=== PATIENT | male | born 1990 | race Caucasian/White ===

== ENCOUNTER 2022-02-20 15:36 | Emergency (ER) | payer OTHER, SELFPAY ==
[2022-02-20 16:22] VITALS: BP 148/87; PULSE 87; RESP 18; TEMP 37.2; O2SAT 98; BMI 31.1
[2022-02-20 20:48] VITALS: BP 143/82; PULSE 75; O2SAT 100
[2022-02-20 21:00] VITALS: BP 145/87; PULSE 74; O2SAT 98
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
[2022-02-20] MEDS: TET,DIPH,PERTUSS(ACELL),VAC/PF 0.5 ML SYRINGE IM (21:04)
[2022-02-20] MEDS: LIDOCAINE 1% (PF) 2 ML (21:04)
[2022-02-20 21:30] VITALS: BP 128/78; PULSE 69; O2SAT 98
[2022-02-20 22:00] VITALS: BP 134/80; PULSE 72; O2SAT 97
[2022-02-20] MEDS: HYDROCODONE/ACET 5/325 PREPACK 1 BOTTLE MISC (22:26)
== END 2022-02-20 22:27 | disposition home or self-care (01) ==
PROVIDERS: Emergency Provider Emergency Medicine
DX: S01.511A Laceration without foreign body of lip, initial encounter (principal); S02.5XXA Fracture of tooth (traumatic), initial encounter for closed fracture; W22.8XXA Striking against or struck by other objects, initial encounter; Y99.0 Civilian activity done for income or pay; Z23 Encounter for immunization
CPT/HCPCS: 12011; 64450; 90471; 99283; 90715